=== PATIENT | female | born 1990 | race Caucasian/White ===

== ENCOUNTER 2025-01-09 08:42 | Emergency (ER) | payer SELFPAY ==
[~2025-01-09] VITALS: Ht 162.6 cm; Wt 60.0 kg
[2025-01-09 08:45] VITALS: BP 117/64; PULSE 65; RESP 18; TEMP 36.7; O2SAT 99
[2025-01-09] MEDS ORDERED: KETOROLAC 30MG/ML VIAL IV STA (09:10)
== END 2025-01-09 09:42 | disposition left against medical advice (07) ==
LOC: ER 08:42
DX: F10.10 Alcohol abuse, uncomplicated (principal); F19.10 Other psychoactive substance abuse, uncomplicated; F12.10 Cannabis abuse, uncomplicated; F15.10 Other stimulant abuse, uncomplicated; Z53.29 Procedure and treatment not carried out because of patient's decision for other reasons; Y90.9 Presence of alcohol in blood, level not specified
CPT/HCPCS: 99283